=== PATIENT | female | born 1980 | race Two or more races ===

== ENCOUNTER 2020-10-04 20:33 | Emergency (ER) | payer MEDICAID ==
[~2020-10-04] VITALS: Ht 172.7 cm; Wt 82.0 kg
[2020-10-04] MEDS ORDERED: ONDANSETRON HCL 4MG/2ML INJ IV STA (21:35)
[2020-10-04] MEDS ORDERED: LORAZEPAM 2MG/ML CPJ IV ONE (21:45)
[2020-10-04] MEDS ORDERED: SODIUM CHLORIDE 0.9% 1,000 ML IV ONE (21:45)
[2020-10-04 22:54] LABS: BASOPHILS % 0.3 % (0.0-2.0); HEMATOCRIT. 37.8 % (36.0-48.0); HEMOGLOBIN. 12.8 g/dL (12.0-16.0); LYMPHOCYTES % 8.8 % (20.0-50.0); MEAN CORPUSCULAR HEMOGLOBIN 31.6 pg (28.0-32.0); MEAN CORPUSCULAR VOLUME 93.1 fL (81.0-99.0); MEAN PLATELET VOLUME 8.9 fl (7.4-10.4); MONOCYTES % 2.2 % (2.0-8.0); NEUTROPHILS % 88.7 % (40.0-76.0); PLATELET 263 x1000/uL (130-400); RED BLOOD CELL COUNT 4.06 mill/uL (4.2-5.4); RED CELL DISTRIBUTION WIDTH 13.4 % (11.6-14.6)
[2020-10-04 23:01] LABS: CHLORIDE 106 mEq/L (98-107)
[2020-10-04 23:02] LABS: HCG SCREEN NEGATIVE
[2020-10-04 23:05] LABS: ETHANOL BLOOD < 10 mg/dL
[2020-10-04 23:11] LABS: CLARITY URINE CLEAR (CLEAR); COLOR URINE YELLOW (YELLOW); KETONES URINE TRACE (NEGATIVE); LEUKOCYTE ESTERASE URINE TRACE (NEGATIVE); NITRITE URINE POSITIVE (NEGATIVE); OCCULT BLOOD URINE NEGATIVE (NEGATIVE); PROTEIN URINE NEGATIVE (NEGATIVE); SPECIFIC GRAVITY URINE 1.028 (1.005-1.030); UROBILINOGEN URINE 0.2 E.U./dL (0.2-1.0)
[2020-10-04] MEDS ORDERED: KETOROLAC 15MG/ML VIAL IV ONE (23:15)
[2020-10-04 23:26] LABS: OPIATES URINE SCREEN NEGATIVE (NEGATIVE)
[2020-10-04 23:27] LABS: *AMPHETAMINES SCREEN URINE NEGATIVE (NEGATIVE); *BARBITURATES SCREEN URINE NEGATIVE (NEGATIVE); *BENZODIAZEPINES SCREEN URINE NEGATIVE (NEGATIVE); *COCAINE SCREEN URINE NEGATIVE (NEGATIVE); METHADONE URINE SCREEN NEGATIVE (NEGATIVE); PHENCYCLIDINE URINE SCREEN NEGATIVE (NEGATIVE)
[2020-10-04 23:36] LABS: CANNABINOID URINE SCREEN PRESUMTIVE POSITIVE (NEGATIVE)
[2020-10-05] MEDS ORDERED: CEFTRIAXONE 1 G PREMIX 50 ML IV ONE
[2020-10-05] MEDS ORDERED: MORPHINE SULFATE 4 MG/ML CPJ (NOT FOR IM USE) IV STA (00:33)
[2020-10-05] MEDS ORDERED: ONDANSETRON HCL 4MG/2ML INJ IV STA (00:33)
[2020-10-05] MEDS ORDERED: SODIUM CHLORIDE 0.9% 1,000 ML IV ONE (00:45)
[2020-10-05 05:32] VITALS: BP 105/51
== END 2020-10-05 05:47 ==
LOC: ER 20:33
DX: R10.9 Unspecified abdominal pain (principal); K56.609 Unspecified intestinal obstruction, unspecified as to partial versus complete obstruction; N30.90 Cystitis, unspecified without hematuria; Z98.84 Bariatric surgery status; Z98.890 Other specified postprocedural states
CPT/HCPCS: 36415; 71045; 74176; 80053; 80305; 80320; 81003; 83690; 84703; 85025; 93005; 96374; 96375; 96376; 99285; J0696; J1885; J2060; J2270; J2405; J7030; G0480

== ENCOUNTER 2023-05-17 22:18 | Emergency (ER) | payer MEDICAID, OTHER ==
[~2023-05-17] VITALS: Ht 167.6 cm; Wt 113.0 kg
[2023-05-17] MEDS ORDERED: ONDANSETRON HCL 4MG/2ML INJ IV STA (22:24)
[2023-05-17] MEDS ORDERED: KETOROLAC 30MG/ML VIAL IV STA (22:24)
[2023-05-17] MEDS ORDERED: SODIUM CHLORIDE 0.9% 1,000 ML IV ONE (22:30)
[2023-05-17 22:59] VITALS: O2SAT 95
[2023-05-18 00:06] LABS: BASOPHILS % 0.2 % (0.0-2.0); EOSINOPHILS % 0.4 % (0.0-5.0); HEMATOCRIT. 38.5 % (36.0-48.0); HEMOGLOBIN. 12.9 g/dL (12.0-16.0); LYMPHOCYTES % 12.5 % (20.0-50.0); MEAN CORPUSCULAR HGB CONC 33.4 g/dL (31.0-37.0); MEAN CORPUSCULAR VOLUME 92.7 fL (81.0-99.0); MEAN PLATELET VOLUME 9.6 fl (7.4-10.4); MONOCYTES % 3.7 % (2.0-8.0); NEUTROPHILS % 83.2 % (40.0-76.0); PLATELET 260 x1000/uL (130-400); RED BLOOD CELL COUNT 4.16 mill/uL (4.2-5.4); RED CELL DISTRIBUTION WIDTH 14.2 % (11.6-14.6); WHITE BLOOD COUNT 11.5 x1000/uL (4.5-11.0)
[2023-05-18 00:07] LABS: CLARITY URINE CLOUDY (CLEAR); COLOR URINE DARK YELLOW (YELLOW); GLUCOSE URINE NEGATIVE (NEGATIVE); KETONES URINE TRACE (NEGATIVE); LEUKOCYTE ESTERASE URINE TRACE (NEGATIVE); NITRITE URINE NEGATIVE (NEGATIVE); OCCULT BLOOD URINE 3+ (NEGATIVE); PH URINE 5.5 (4.5-8.0); PROTEIN URINE 1+ (NEGATIVE); SPECIFIC GRAVITY URINE 1.025 (1.005-1.030)
[2023-05-18 00:10] LABS: SQUAMOUS EPITHELIAL CELL URINE 1+ /lpf (RARE/1+)
[2023-05-18 00:13] LABS: CHLORIDE 107 mEq/L (98-107); INDEX HEMOLYSI 1 (1-3); INDEX ICTERIC 1 (1-4); INDEX LIPEMIC 1 (1-3); POTASSIUM 3.5 mEq/L (3.5-5.1); SODIUM 140 mEq/L (136-145)
[2023-05-18 00:16] LABS: PROTHROMBIN TIME 10.5 sec (9.6-11.0)
[2023-05-18 00:21] LABS: ALANINE AMINOTRANSFERASE 47 IU/L (13-61); ALBUMIN 3.6 g/dL (3.4-5.0); ASPARTATE AMINOTRANSFERASE 23 IU/L (15-37); BILIRUBIN TOTAL 0.3 mg/dL (0.1-1.0); CALCIUM 8.2 mg/dL (8.5-10.1); CARBON DIOXIDE 26 mEq/L (21-32); CREATININE 0.8 mg/dL (0.6-1.3); ETHANOL BLOOD < 10 mg/dL (<10); GLUCOSE 124 mg/dL (70-105); PROTEIN TOTAL 7.4 g/dL (6.0-8.3); UREA NITROGEN BLOOD 12 mg/dL (7-21)
[2023-05-18 00:27] LABS: *AMPHETAMINES SCREEN URINE NEGATIVE (NEGATIVE); *BARBITURATES SCREEN URINE NEGATIVE (NEGATIVE); *BENZODIAZEPINES SCREEN URINE NEGATIVE (NEGATIVE); *COCAINE SCREEN URINE NEGATIVE (NEGATIVE); ECSTASY MDMA SCREEN URINE NEGATIVE (NEGATIVE); METHADONE URINE SCREEN NEGATIVE (NEGATIVE); OPIATES URINE SCREEN NEGATIVE (NEGATIVE); PHENCYCLIDINE URINE SCREEN NEGATIVE (NEGATIVE)
[2023-05-18 00:28] LABS: HCG SCREEN NEGATIVE
[2023-05-18 00:29] LABS: CANNABINOID URINE SCREEN PRESUMTIVE POSITIVE (NEGATIVE)
[2023-05-18 02:10] LABS: RBC URINE 0-2 /hpf (0-2); WBC URINE 0-2 /hpf (0-2)
[2023-05-18 02:12] LABS: BACTERIA URINE TRACE
[2023-05-18 02:13] LABS: YEAST URINE NONE SEEN
[2023-05-18] MEDS ORDERED: ONDA4TAB50 MT (02:30)
[2023-05-18] MEDS ORDERED: NAPR-1074 MT (02:30)
[2023-05-18 04:27] VITALS: BP 109/61; PULSE 76; RESP 18; TEMP 98.4
== END 2023-05-18 04:43 | disposition home or self-care (01) ==
LOC: ER 22:18
DX: K46.9 Unspecified abdominal hernia without obstruction or gangrene (principal); N83.202 Unspecified ovarian cyst, left side; Z98.890 Other specified postprocedural states
CPT/HCPCS: 80053; 80305; 81003; 80320; 84703; 83690; 85025; 85610; 36415; 96374; 96375; 99285; 74176; J1885; J2405; J7030; G0480